=== PATIENT | female | born 1955 | race Two or more races ===

== ENCOUNTER 2022-06-07 05:15 | Day surgery (SDC) | payer OTHER ==
[~2022-06-07] VITALS: Ht 152.4 cm; Wt 62.1 kg
[~2022-06-07 05:15] MED LIST: ACID REDUCER20 M1 PO; AMBIEN5 MG PO; BUSPIRONE HCL7.5 MG PO; CITALOPRAM HBR20 MG PO; GABAPENTIN100 M2 PO; LEVO-T88 MCG PO; PRAVASTATIN SOD40 MG PO; TOPROL XL50 M1 PO
[2022-06-07] MEDS ORDERED: BACTRIM DS TAB1 EACH PO (08:28)
[2022-06-07] MEDS ORDERED: ULTRACET PO (08:28)
== END 2022-06-07 14:45 | disposition home or self-care (01) ==
LOC: CIR.AMB 05:15
PROVIDERS: ATTEND Orthopaedic Surgery Sports Medicine
DX: M17.11 Unilateral primary osteoarthritis, right knee (principal); Z88.0 Allergy status to penicillin; Z88.8 Allergy status to other drugs, medicaments and biological substances; I10 Essential (primary) hypertension; E03.9 Hypothyroidism, unspecified; M79.7 Fibromyalgia

== ENCOUNTER 2024-10-16 05:30 | Day surgery (SDC) | payer OTHER ==
[2024-10-10 10:48] VITALS: BP 159/89
[2024-10-10 11:02] LABS: HEMATOCRIT 38.6 % (36.0-45.00); HEMOGLOBIN 13.1 g/dL (12.0-15.00); MEAN CELL VOLUME 92.9 fL (80.00-100.00); MEAN CORPUSCULAR HEMOGLOBIN 31.6 pg (27.00-32.0); MEAN CORPUSCULAR HGB CONC 34.1 g/dl (32.0-36.0); PLATELET COUNT 334 K/uL (150-450); RED BLOOD COUNT 4.15 M/uL (4.00-6.00); RED CELL DISTRIBUTION WIDTH 13.1 % (11.5-14.5)
[2024-10-10 11:18] LABS: URINE APPEARANCE Clear; URINE BILIRRUBIN Negative (NEGATIVE); URINE BLOOD Negative; URINE COLOR Yellow; URINE GLUCOSE Negative (NEGATIVE); URINE KETONE Negative (NEGATIVE); URINE LEUKOCYTE Trace; URINE NITRATE Negative; URINE PROTEIN Negative (NEGATIVE); URINE UROBILINOGEN 0.2 E.U./dl
[2024-10-10 11:23] LABS: URINE BACTERIA 20.8 uL (0.0-1933); URINE EPITHELIAL CELLS 2.3 uL (0.0-38.8); URINE RBC 5.2 uL (0.0-20.8)
[2024-10-10 11:24] LABS: PARTIAL THROMBOPLASTIN TIME 26.8 SECONDS (22.0-34.0); PROTHROMBIN TIME 10.9 SECONDS (9.0-11.5)
[2024-10-10 11:50] LABS: ALBUMIN 3.9 gm/dL (3.4-5.0); BILIRUBIN TOTAL 0.45 mg/dL (0.3-1.2); CREATININE SERUM 0.74 mg/dL (0.55-1.02); GFR 78.04; GLOBULINA 3.7 G/DL (2.4-3.5); POTASSIUM 4.71 mEq/L (3.5-5.1); TOTAL PROTEIN 7.6 gm/dL (6.4-8.2)
[~2024-10-16] VITALS: Ht 154.9 cm; Wt 66.7 kg
[~2024-10-16 05:30] MED LIST changes: +BACTRIM DS TAB1 EACH PO; +ULTRACET PO
[2024-10-16] MEDS ORDERED: PERCOCET 5-3251 EACH PO (17:14)
[2024-10-16] MEDS ORDERED: CIPRO500 MG PO (17:14)
[2024-10-16] MEDS ORDERED: ALEVE220 M1 PO (17:14)
[2024-10-16] MEDS ORDERED: POVIDONE-IODINE 118 ML BOTT TOP ONE (17:15)
[2024-10-16] MEDS ORDERED: VANCOMYCIN HCL 1,000 MG VIAL IV ONE (17:15)
== END 2024-10-16 19:10 | disposition home or self-care (01) ==
LOC: CIR.AMB 05:30
PROVIDERS: ATTEND Orthopaedic Surgery
DX: S52.531A Colles' fracture of right radius, initial encounter for closed fracture (principal); S52.691A Other fracture of lower end of right ulna, initial encounter for closed fracture; I10 Essential (primary) hypertension; Z88.5 Allergy status to narcotic agent; Z88.0 Allergy status to penicillin; M81.0 Age-related osteoporosis without current pathological fracture; E03.8 Other specified hypothyroidism
CPT/HCPCS: 25609; 20902; 25101; L8699